=== PATIENT | female | born 1980 | race Caucasian/White ===

== ENCOUNTER 2017-06-24 20:20 | Observation (INO) | payer MEDICAID ==
[~2017-06-24] VITALS: Ht 160 cm; Wt 55.8 kg
[2017-06-24] MEDS ORDERED: PREN1SGL25 PO (20:44)
[2017-06-24] MEDS ORDERED: FERR-252 PO (20:45)
[2017-06-24 21:17] VITALS: BP 117/55
== END 2017-06-24 22:50 | disposition home or self-care (01) ==
LOC: MLD 20:20
PROVIDERS: ADMIT Obstetrics & Gynecology; ATTEND Obstetrics & Gynecology
DX: O26.892 Other specified pregnancy related conditions, second trimester (principal); R10.9 Unspecified abdominal pain; Z3A.21 21 weeks gestation of pregnancy
CPT/HCPCS: 76805; 81000; G0378; Q0092

== ENCOUNTER 2017-07-14 18:07 | Emergency (ER) | payer MEDICAID, OTHER ==
[~2017-07-14] VITALS: Ht 160 cm; Wt 56.7 kg
[~2017-07-14 18:07] MED LIST: FERR-252 PO; PREN1SGL25 PO
[2017-07-14 19:18] VITALS: BP 107/60
--- NOTE | 2017-07-14 19:35 | NUR ---
PT AMBULATED TO OF4
--- NOTE | 2017-07-14 19:38 | NUR ---
PATIENT IS A 36 Y/O FEMALE WHO PRESENTS TO THE ED C/O COUGH. PT STATES, "I HAVE BEEN COUGHING AND MY CHEST HURTS." PT REPORTS 8/10 SHARP CHEST PAIN THAT DOES NOT RADIATE. PT DENIES SOB, N/V/D, REPORTS NOT BEING ABLE TO EAT. PT AAOX4, RR EVEN/UNLABORED. PT AAOX4, RR EVEN/UNLABORED. PT REPOSITIONED FOR COMFORT, BED IN LOWEST POSITION. ER MD DR. MEZA NOTIFIED. WILL CONTINUE TO MONITOR.
[2017-07-14 20:57] VITALS: BP 112/65
--- NOTE | 2017-07-14 20:57 | NUR ---
Patient discharged with v/s stable. Written and verbal after care instructions given and explained. Patient alert, oriented and verbalized understanding of instructions. Ambulatory with steady gait. All questions addressed prior to discharge. ID band removed. Patient advised to follow up with PMD. Rx of ROBITUSSIN AND TAMIFLU given. Patient educated on indication of medication including possible reaction and side effects. Opportunity to ask questions provided and answered.
== END 2017-07-14 20:57 | disposition home or self-care (01) ==
LOC: MED 18:07
DX: O99.512 Diseases of the respiratory system complicating pregnancy, second trimester (principal); J11.1 Influenza due to unidentified influenza virus with other respiratory manifestations; Z3A.22 22 weeks gestation of pregnancy
CPT/HCPCS: 93005; 99283

== ENCOUNTER 2019-12-29 14:16 | Emergency (ER) | payer MEDICAID, OTHER ==
[~2019-12-29] VITALS: Ht 160 cm; Wt 52.2 kg
[2019-12-29 14:24] VITALS: BP 115/76
--- NOTE | 2019-12-29 14:31 | NUR ---
PATIENT AMBULATED TO BED 7.
--- NOTE | 2019-12-29 14:38 | NUR ---
39 Y/O FEMALE C/O LEFT SIDED FACIAL SWELLING X1 DAY. PT STATED SHE WOKE UP WITH THE LEFT SIDE OF HER FACE SWOLLEN, AND PAIN WHEN BITING DOWN. NO PAIN PRESENT WHEN FACE IS RELAXED. PT DENIES ANY INJURY OR TRAUMA TO HER FACE/HEAD RECENTLY. PT STATES SHE FEELS PRESSURE ON THE LEFT SIDE OF HER FACE. 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 VSS. DENIES ANY CHANGES TO VISUAL FIELD, HEARING. DENIES FEVER/CHILLS
[2019-12-29] MEDS: predniSONE 20 MG TAB PO ONE (15:06)
[2019-12-29 15:22] VITALS: BP 115/76
--- NOTE | 2019-12-29 15:22 | NUR ---
Patient discharged with v/s stable. Written and verbal after care instructions given and explained. Patient alert, oriented and verbalized understanding of instructions. Ambulatory with steady gait. All questions addressed prior to discharge. ID band removed. Patient advised to follow up with PMD. Rx of PREDNISONE, IBUPROFEN, AMOXCILLIN, BENADARYL given. Patient educated on indication of medication including possible reaction and side effects. Opportunity to ask questions provided and answered.
== END 2019-12-29 15:22 | disposition home or self-care (01) ==
LOC: MED 14:16
DX: K11.20 Sialoadenitis, unspecified (principal); Z79.899 Other long term (current) drug therapy
CPT/HCPCS: 99283; J7512; Q0163